=== PATIENT | female | born 2000 | race Caucasian/White ===

== ENCOUNTER → 2020-09-02 | Outpatient (CLI) | payer OTHER ==
[2020-09-02 17:14] LABS: IMMUNOGLOBULIN M 89.3 MG/DL (40-230)
[2020-09-04 18:08] LABS: COMPLEMENT TOTAL (CH50) 54 U/mL (>41)
--- NOTE | 2020-09-08 09:00 | REP ---
STANDING BILATERAL AP KNEES HISTORY: Pain. TECHNIQUE: Standing AP view of bilateral knees is performed. FINDINGS: On the left, there is no fracture or dislocation. Joint spaces are unremarkable. On the right, no acute fracture or dislocation is seen. There are postsurgical changes with mixed sclerotic and lucent density obliquely through the lateral femoral condyle and adjacent medial tibial plateau. This suggests prior anterior cruciate ligament (ACL) reconstruction surgery. Benign appearing round lucency in the proximal tibia more laterally and inferiorly is probably postsurgical. There are mild arthritic changes noted particularly of the medial joint space of the right knee. There is mild joint space narrowing and subchondral sclerosis. There may be some early arthritic change of the lateral joint space as well. MTDD
== END ==
LOC: M WUC 14:27
PROVIDERS: ATTEND Internal Medicine
DX: M17.10 Unilateral primary osteoarthritis, unspecified knee (principal); Z86.19 Personal history of other infectious and parasitic diseases; R21 Rash and other nonspecific skin eruption; M79.10 Myalgia, unspecified site